=== PATIENT | male | born 1980 | race Caucasian/White ===

== ENCOUNTER 2016-06-17 21:20 | Emergency (ER) | payer OTHER ==
[~2016-06-17] VITALS: Ht 182.9 cm; Wt 68.0 kg
[~2016-06-17 21:20] MED LIST: MOTRIN 600 MG600 MG PO
--- NOTE | 2016-06-17 22:03 | RADIOLOGY REPORT ---
EXAMINATION: XR FINGER, RIGHT CLINICAL INFORMATION: Trauma. Fifth digit pain COMPARISON: 09/25/2011 TECHNIQUE: Three views of the right hand fifth digit. FINDINGS: There is no acute fracture or dislocation. Alignment is anatomic. Joint spaces are maintained. The soft tissues are unremarkable. IMPRESSION: Unremarkable right hand fifth digit radiographs.
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
[2016-06-17] MEDS ORDERED: TRAMADOL HCL50 M1 PO (22:16)
[2016-06-17 22:35] VITALS: BP 112/72
== END 2016-06-17 22:55 ==
LOC: ERH 21:20
DX: M20.011 Mallet finger of right finger(s) (principal)
CPT/HCPCS: 73140-RT

== ENCOUNTER 2017-09-05 01:17 | Emergency (ER) | payer OTHER ==
[~2017-09-05] VITALS: Ht 177.8 cm; Wt 62.1 kg
[~2017-09-05 01:17] MED LIST changes: +TRAMADOL HCL50 M1 PO
[2017-09-05 01:36] VITALS: BP 95/55
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
--- NOTE | 2017-09-05 02:23 | CT SCAN REPORT ---
EXAMINATION: CT HEAD WITHOUT CONTRAST CLINICAL INFORMATION: Head injury COMPARISON: None TECHNIQUE: Contiguous axial imaging was performed from the skull base to vertex without intravenous administration of contrast. DLP: 728.70 mGy-cm FINDINGS: There is no evidence of acute intracranial hemorrhage or territorial infarction. No abnormal mass effect or midline shift is seen. Foy to white matter differentiation is well preserved. No extra-axial fluid collections are identified. There is mild disproportionate prominence of the ventricles relative to the sulcal spaces. There is no abnormal attenuation within the brain parenchyma. The osseous structures and soft tissues are normal. There is a mucous retention cyst in the right sphenoid sinus. The mastoid air cells are well-aerated. IMPRESSION: No acute intracranial hemorrhage. Mild disproportionate prominence of the ventricles relative to the sulcal spaces, which may reflect hydrocephalus; this is of indeterminate chronicity in the absence of prior studies for comparison.
== END 2017-09-05 02:48 ==
LOC: ERH 01:17
DX: S09.90XA Unspecified injury of head, initial encounter (principal); S06.0X9A Concussion with loss of consciousness of unspecified duration, initial encounter; R51 Headache; W22.02XA Walked into lamppost, initial encounter; Y92.9 Unspecified place or not applicable; Y93.9 Activity, unspecified